=== PATIENT | male | born 1995 | race Caucasian/White ===

== ENCOUNTER 2018-04-17 02:34 | Emergency (ER) | payer MEDICAID ==
[~2018-04-17] VITALS: Ht 172.7 cm; Wt 101.6 kg
[2018-04-17 02:42] VITALS: Ht 172.7 cm; Wt 101.6 kg
[2018-04-17 04:16] VITALS: BP 116/71
== END 2018-04-17 04:16 | disposition home or self-care (01) ==
LOC: ED 02:34 → EDSEX 02:34 → ED 04:16
DX: S63.92XA Sprain of unspecified part of left wrist and hand, initial encounter (principal); W25.XXXA Contact with sharp glass, initial encounter; Y93.89 Activity, other specified; Y92.89 Other specified places as the place of occurrence of the external cause; Y99.8 Other external cause status
CPT/HCPCS: 90715